=== PATIENT | male | born 1955 | race Caucasian/White ===

== ENCOUNTER 2019-01-26 09:34 | Day surgery (SDC) | payer BC ==
[2019-01-25 10:29] VITALS: BMI 31.1
[2019-01-26] MEDS ORDERED: Lidocaine 1% w/Epinephrine 1:100K 20 ML VIAL ONE (12:32)
[2019-01-26] MEDS ORDERED: Bacitracin Zinc Ointment 30 gm TUBE ONE (12:32)
[2019-01-26] MEDS ORDERED: Fentanyl 250 MCG/5 ML VIAL ONE (12:35)
[2019-01-26] MEDS ORDERED: Fentanyl 100 MCG/2 ML VIAL ONE (15:40)
[2019-01-26] MEDS ORDERED: Rocuronium Bromide 10 MG/ML (10ML VIAL) ONE (16:19)
[2019-01-26] MEDS ORDERED: Succinylcholine Chloride 20 MG/ML 10 ml SYRINGE FS ONE (16:19)
[2019-01-26] MEDS ORDERED: ePHEDrine 50 MG/ML VIAL ONE (16:19)
[2019-01-26] MEDS ORDERED: PROPOFOL 200 MG/20 ML VIAL ONE (16:19)
[2019-01-26] MEDS ORDERED: Ondansetron PF 4 MG/2 ML Vial ONE (16:19)
[2019-01-26] MEDS ORDERED: Dexamethasone 20 MG/5 ML VIAL ONE (16:19)
[2019-01-26] MEDS ORDERED: Lidocaine 1% PF 5 ML VIAL ONE (16:19)
[2019-01-26] MEDS ORDERED: traMADol HCl 50 MG TAB ONE ×2 (17:15)
--- NOTE | 2019-01-27 09:32 | OP ---
DATE OF PROCEDURE: 01/26/2019 PREOPERATIVE DIAGNOSIS: Left parotid mass. POSTOPERATIVE DIAGNOSIS: Left parotid malignancy. PROCEDURE PERFORMED: 1. Left total parotidectomy with facial nerve dissection. 2. Facial nerve monitoring for some 2 hours. PROCEDURE IN DETAIL: After consent was obtained, the patient was identified, brought to the operating room, and placed on operating table in supine position. General endotracheal anesthesia was obtained and facial nerve monitor was placed and as were the electrodes and documented to be functioning. We then proceeded with prepping and draping in sterile fashion. The mass was found to be at or near the level in the preauricular area near the level of zygomatic arch and was densely adherent to the surrounding tissues. The incision was made in the preauricular space and carried down into the natural skin crease two fingerbreadths below the angle. This incision was carried down through the skin and subcutaneous tissues and stopped at the level of the parotid fascia. Similarly in the neck, the incision was carried down to the level of SMAS layer. We then created a flap along with layer and suture secured to the skin to the anterior facial skin. We then continued our dissection along the anterior border of sternocleidomastoid and preauricular cartilage until the pointer cartilage was encountered. We then also dissected to the level of posterior digastric. In the region between these 2 points, we meticulously dissected anteromedially until trunk of the facial nerve was encountered. We then dissected along the nerve and identified the inferior and superior branches, and then, all the smaller branches associated with it. With some meticulousness, we then delineated each of the branch of the facial nerve when we got to the left region of the preauricular area. We dissected the nerve while rolling the parotid mass from the surrounding connective tissue. Once we removed this and got this free from the nerves. We went back and removed the remainder of the parotid gland with care not to injure any of the facial nerve branches. The branches were tested with a nerve integrity thalia at the end and found all to be functioning well. The specimen was sent for histologic evaluation and frozen section revealed a malignant lesion. The hemostasis was then obtained with bipolar and the wound was closed in layers with Monocryl, used to close the deep layers and 6-0 Prolene for the skin. The patient was awakened, extubated, taken to recovery in a stable condition prior to discharge home. Job ID: [id number]
== END 2019-01-26 18:26 | disposition home or self-care (01) ==
LOC: SDC 09:34
PROVIDERS: ATTEND Specialist
PROC: 0CTC0ZZ Resection of Left Parotid Duct, Open Approach (ICD-10-PCS; principal; 2019-01-26)
DX: C07 Malignant neoplasm of parotid gland (principal); Z79.1 Long term (current) use of non-steroidal anti-inflammatories (NSAID); Z79.899 Other long term (current) drug therapy; Z88.0 Allergy status to penicillin; Z88.5 Allergy status to narcotic agent; Z98.890 Other specified postprocedural states
CPT/HCPCS: 88307; 88331; 93005; 93010; J0131; J1100; J2001; J2405; J2704; J3010; J3490